=== PATIENT | male | born 1995 | race African-American/Black ===

== ENCOUNTER 2021-11-04 15:14 | Emergency (ER) | payer SELFPAY ==
[~2021-11-04] VITALS: Ht 162.6 cm; Wt 74.8 kg
--- NOTE | 2021-11-04 18:02 | RAD ---
Single view chest dated 11/04/2021 5:59 PM: COMPARISON: None Clinical Indication: Shortness breath. Findings: Single upright portable exam of the chest was performed. Heart and mediastinal contours within normal limits. There is patchy airspace disease in the bilateral lower lobes. No pleural effusion. No pneum othorax. There is also some increased density at the peripheral aspect of the right mid zone. IMPRESSION: 1. Patchy bilateral airspace disease consistent with pneumonia. Covid 19 pneumonitis is possible. Electronically signed by: Renny Rico MD (11/04/2021 6:00 PM) STEPHEN
[2021-11-04] MEDS ORDERED: cefTRIAXone IM 1 GM VIAL IM ONE (18:15)
[2021-11-04] MEDS ORDERED: LIDOCAINE 1% PF 2 ML VIAL. INJ ONE (18:15)
[2021-11-04] MEDS ORDERED: DOXYCYCLINE HYCLATE 100 MG TABLET PO ONE (18:15)
[2021-11-04] MEDS ORDERED: DEXA4TAB63 PO (19:10)
[2021-11-04] MEDS ORDERED: DOXY100T PO (19:10)
[2021-11-04] MEDS ORDERED: ALBU2.5V8 IH (19:10)
--- NOTE | 2021-11-04 19:10 | PHYS DOC ---
Past Medical History Past Surgical History: No Surgical History (MAURY MOSS Larissa PCT) Smoking Status: Never Smoker Alcohol Use: Rarely Social History Narrative: LAST TIME USING [facility] WAS 2 WEEKS AGO (MAURY MOSS PCT) General Adult EDM: Chief Complaint: SHORTNESS OF BREATH HPI: HPI: Patient is a 26 year old male who presents to the ED today to be evaluated for shortness of breath. Patient states he was diagnosed with COVID-19 10 days ago. He states since yesterday he has had intermittent episodes of shortness of breath. Patient denies any fever, coughing, chest pain. He states he is unvaccinated against COVID-19 (MAURY MOSS PCT) Review of Systems: Review of Systems: Constitutional: Denies fever or chills. [] Eyes: Denies change in visual acuity. [] HENT: Denies nasal congestion or sore throat. [] Respiratory: Reports shortness of breath, denies coughing Cardiovascular: Denies chest pain or edema. [] GI: Denies abdominal pain, nausea, vomiting, bloody stools or diarrhea. [] : Denies dysuria. [] Musculoskeletal: Denies back pain or joint pain. [] Integument: Denies rash. [] Neurologic: Denies headache, focal weakness or sensory changes. [] Psychiatric: Denies depression or anxiety. [] (MAURY MOSS Larissa PCT) Heart Score: C/O Chest Pain: N/A Risk Factors: Risk Factors: DM, Current or recent (<one month) smoker, HTN, HLP, family history of CAD, obesity. Risk Scores: Score 0 - 3: 2.5% MACE over next 6 weeks - Discharge Home Score 4 - 6: 20.3% MACE over next 6 weeks - Admit for Clinical Observation Score 7 - 10: 72.7% MACE over next 6 weeks - Early Invasive Strategies (MAURY MOSS Larissa PCT) Current Medications: Current Medications Medications (Trade) Dose Ordered Sig/Shakir Start Time Stop Time Status Last Admin Dose Admin Ceftriaxone Sodium (Rocephin Im) 1 gm 1X ONCE 11/04/21 18:15 11/04/21 18:16 DC 11/04/21 18:29 1 GM Doxycycline Hyclate (Vibra-Tab) 100 mg 1X ONCE 11/04/21 18:15 11/04/21 18:16 DC 11/04/21 18:29 100 MG Lidocaine HCl (Xylocaine-Mpf 1% 2ml Vial) 2 ml 1X ONCE 11/04/21 18:15 11/04/21 18:16 DC 11/04/21 18:29 2 ML (MAURY MOSS Larissa PCT) Allergies: Allergies: Allergies Coded Allergies Type Severity Reaction Last Updated Verified No Known Drug Allergies 11/04/21 No (MAURY MOSS Larissa PCT) Physical Exam: PE: Constitutional: Well developed, well nourished, no acute distress, non-toxic appearance. [] HENT: Normocephalic, atraumatic, bilateral external ears normal, oropharynx moist, no oral exudates, nose normal. [] Eyes: PERRLA, EOMI, conjunctiva normal, no discharge. [] Neck: Normal range of motion, no tenderness, supple, no stridor. [] Cardiovascular: Tachycardic Lungs & Thorax: Bilateral breath sounds clear to auscultation [] Abdomen: Bowel sounds normal, soft, no tenderness, no masses, no pulsatile masses. [] Skin: Warm, dry, no erythema, no rash. [] Back: No tenderness, no CVA tenderness. [] Extremities: No tenderness, no cyanosis, no clubbing, ROM intact, no edema. [] Neurologic: Alert and oriented X 3, normal motor function, normal sensory function, no focal deficits noted. [] Psychologic: Affect normal, judgement normal, mood normal. [] (MAURY MOSS PCT) Current Patient Data: Vital Signs: Vital Signs Date Time Temp Pulse Resp B/P (MAP) Pulse Ox O2 Delivery O2 Flow Rate FiO2 11/04/21 18:36 110 20 127/67 (87) 97 Room Air 11/04/21 17:45 98.3 98.3 (AJAYMAURY Larissa PCT) EKG: EKG: [] (MAURY MOSS PCT) Radiology/Procedures: Radiology/Procedures: []PROCEDURE: CHEST AP ONLY Single view chest dated 11/04/2021 5:59 PM: COMPARISON: None Clinical Indication: Shortness breath. Findings: Single upright portable exam of the chest was performed. Heart and mediastinal contours within normal limits. There is patchy airspace disease in the bilateral lower lobes. No pleural effusion. No pneumothorax. There is also some increased density at the peripheral aspect of the right mid zone. IMPRESSION: 1. Patchy bilateral airspace disease consistent with pneumonia. Covid 19 pneumonitis is possible. Electronically signed by: Renny Rico MD (11/04/2021 6:00 PM) [facility] [place] DICTATED and SIGNED BY: RENNY RICO MD DATE: 11/04/21 [id number] 0 (MAURY MOSS APRN) Course & Med Decision Making: Course & Med Decision Making Pertinent Labs and Imaging studies reviewed. (See chart for details) This is a 26-year-old male patient presented to the ED today with shortness of breath that began yesterday, patient was diagnosed with COVID19 10 days ago. O2 sats in the ED 99 200% on room air, he is afebrile. Chest x-ray shows patchy bilateral airspace disease consistent with pneumonia. Covid 19 pneumonitis is possible. Patient was given Rocephin IM 1 g in the ED and discharged on doxycycline and Decadron. Provided return precautions. (MAURY MOSS APRN) Course & Med Decision Making This particular patient's case was not discussed with me, I was not able to discuss care or the choice of discharge medications by the nurse practitioner. I do not agree with the plan to discharge the patient on Decadron, I do not agree with IM and oral antibiotics that were prescribed. Findings of Covid pneumonitis with recent known diagnosis of COVID-19 infection would explain his symptoms. Patient does not have a documented history of obstructive pulmonary disease or asthma, as documented in the chart. I was available for consultation, but this was not done. (SUSIE REGALADO DO) Randee Disclaimer: Randee Disclaimer: This electronic medical record was generated, in whole or in part, using a voice recognition dictation system. (MAURY MOSS APRN) Departure Departure Impression: Primary Impression: Right lower lobe pneumonia Qualified Codes: J18.9 - Pneumonia, unspecified organism Additional Impression: Shortness of breath Disposition: 01 HOME / SELF CARE / HOMELESS Condition: STABLE Patient Instructions: Pneumonia, Adult, Shortness of Breath Additional Instructions: You were evaluated in the emergency room and noted to have Covid pneumonia. We put you on antibiotics. Ensure you complete them. Follow-up with your primary care doctor in a week. Also take the prescribed Decadron and use the breathing treatments as needed for shortness of breath. Come back to the ED at any point symptoms worsen Scripts Albuterol Sulfate (Proair Hfa) 8.5 Gm Hfa.aer.ad 2 PUFF IH PRN Q4-6HRS PRN for wheezing for 21 Days, #1 INHALER 0 Refills Prov: MAURY MOSS APRN 11/04/21 Dexamethasone (Decadron) 4 Mg Tablet 1 TAB PO BID for 5 Days, #10 TAB 0 Refills Prov: MAURY MOSS APRN 11/04/21 Doxycycline Hyclate (DOXYCYCLINE HYCLATE) 100 Mg Tablet 1 TAB PO BID, #14 TAB Prov: MAURY MOSS APRN 11/04/21 MAURY MOSS APRN Nov 04, 2021 19:10 SUSIE REGALADO DO Nov 06, 2021 01:44
[2021-11-04 19:40] VITALS: BP 130/70
== END 2021-11-04 19:40 | disposition home or self-care (01) ==
LOC: ER 15:14
DX: J18.9 Pneumonia, unspecified organism (principal); R06.02 Shortness of breath
CPT/HCPCS: 71045; 96372; 99283; J0696; J3490